=== PATIENT | female | born 1945 | race Caucasian/White ===

== ENCOUNTER 2017-04-12 13:04 | Emergency (ER) | payer MEDICARE ==
[~2017-04-12] VITALS: Ht 154.9 cm; Wt 86.2 kg
[~2017-04-12 13:04] MED LIST: ASPIRIN 81MG TA81 MG PO; ATORVASTATIN CA20 M1 PO; BISOPROLOL 5MG T5 MG PO; CLONAZEPAM0.5 M1 PO; DIFLUCAN 200MG200 MG PO; ESTRADIOL0.5 MG PO; HCTZ/LISINOPRIL1 TA3 PO; HYDROXYZINE HCL25 M1 PO; KLOR-CON M2020 ME1 PO; LINZESS145 MCG PO; MEDROL 4MG. DOSE4 MG PO; NYSTATIN OINTME15 G1 EX; TRAMADOL 50MG T1 PAK PO
[2017-04-12] MEDS ORDERED: CARVEDILOL 25MG25 MG PO (13:31)
--- OUTSIDE RECORDS SUMMARY | 2017-04-12 13:31 | External Medical Summary Rpt | CCD ---
Demographics Preferred Language Spanish Marital Status Unknown Confucianism Affiliation Unknown Race Unknown Ethnic Group Unknown Author Author , WM BURK Address Unknown Phone Immunization No patient found.
--- OUTSIDE RECORDS SUMMARY | 2017-04-12 13:31 | External Medical Summary Rpt | CCD ---
Demographics Preferred Language [place] Marital Status Unknown Christian Affiliation Unknown Race Unknown Ethnic Group Unknown Author Author , WM BURK Address Unknown Phone Immunization No patient found.
--- OUTSIDE RECORDS SUMMARY | 2017-04-12 13:31 | External Medical Summary Rpt | CCD ---
Author Author , WM BURK Address Unknown Phone [email or web address] Purpose Continuity of Care Document - 07-25-2016 through 2016 Problems Code Diagnosis DOS Provider Status E87.6 HYPOKALEMIA 04-12-2017 Z79.899 OTHER LONG 03-25-2017 TERM (CURRENT) DRUG THERAPY Z87.891 PERSONAL 03-25-2017 HISTORY OF NICOTINE DEPENDENCE Z88.1 ALLERGY 03-25-2017 STATUS TO OTHER ANTIBIOTIC AGENTS STATUS Z88.8 ALLERGY 03-25-2017 STATUS TO OTHER DRUGS, MEDICAMENTS AND BIOLOGICAL SUBSTANCES STATUS Z91.041 RADIOGRAPHI 03-25-2017 C DYE ALLERGY STATUS Z95.5 PRESENCE OF 03-25-2017 CORONARY ANGIOPLASTY IMPLANT AND GRAFT R10.32 LEFT LOWER 02-20-2017 QUADRANT PAIN R14.0 ABDOMINAL 02-20-2017 DISTENSION (GASEOUS) R68.83 CHILLS 02-20-2017 (WITHOUT FEVER) Z87.19 PERSONAL 02-20-2017 HISTORY OF OTHER DISEASES OF THE DIGESTIVE SYSTEM Z12.31 ENCOUNTER 02-12-2017 FOR SCREENING MAMMOGRAM FOR MALIGNANT NEOPLASM OF BREAST F41.9 ANXIETY 12-26-2016 DISORDER, UNSPECIFIED I10 ESSENTIAL 12-26-2016 (PRIMARY) HYPERTENSIO N 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 N39.0 URINARY 12-26-2016 TRACT INFECTION, SITE NOT SPECIFIED R00.2 PALPITATION 12-26-2016 S R19.7 DIARRHEA, 12-26-2016 UNSPECIFIED R53.1 WEAKNESS 12-26-2016 T36.8X5A ADVERSE 12-26-2016 EFFECT OF OTHER SYSTEMIC ANTIBIOTICS , INITIAL ENCOUNTER 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 Z98.61 CORONARY 12-26-2016 ANGIOPLASTY STATUS F41.0 PANIC 08-21-2016 DISORDER [EPISODIC PAROXYSMAL ANXIETY] WITHOUT AGORAPHOBIA 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-21-2016 (CURRENT) USE OF ANTITHROMBO TICS/ANTIPL ATELETS Z95.820 PERIPHERAL 08-21-2016 VASCULAR ANGIOPLASTY STATUS WITH IMPLANTS AND GRAFTS D50.9 Iron 07-25-2016 deficiency anemia, unspecified G89.29 Other 07-25-2016 chronic pain I95.9 Hypotension 07-25-2016 , unspecified J06.9 Acute upper 07-25-2016 respiratory infection, unspecified K25.9 Gastric 07-25-2016 ulcer, unspecified as acute or chronic, without hemorrhage or perforation K31.9 Disease of 07-25-2016 stomach and duodenum, unspecified K44.9 Diaphragmat 07-25-2016 ic hernia without obstruction or gangrene K57.31 Diverticulo 07-25-2016 sis of large intestine without perforation or abscess with bleeding K59.09 Other 07-25-2016 constipatio n K64.8 Other 07-25-2016 hemorrhoids K92.2 Gastrointes 07-25-2016 tinal hemorrhage, unspecified M54.9 Dorsalgia, 07-25-2016 unspecified R11.0 Nausea 07-25-2016 Z90.49 Acquired 07-25-2016 absence of other specified parts of digestive tract 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
--- OUTSIDE RECORDS SUMMARY | 2017-04-12 13:31 | External Medical Summary Rpt | CCD ---
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
--- NOTE | 2017-04-12 13:33 | Emergency Room Report ---
History of Present Illness Time Seen by [id number] Presenting Problem in Triage Pt arrived:Walked Presenting Problem:ABDOMINAL CRAMPING WITH NAUSEA. WEAKNESS. 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 Recent fever? N Clinical Suspician of Infection? Y Mental Status: 1 - Regular (Normal Baseline) Sepsis Risk:Low Sepsis Risk Have you (or family members/close friends) recently traveled outside the [place]? N If Yes, where/when: Have you had exposure to infectious disease within the past month? TB? Other? Specify: H and states since Saturday she's been feeling weak and is having bilateral lower quadrant crampy abdominal pain moderate in severity no radiation states she has malaise and fatigue she states she was seen at her family doctor's office on Saturday and they thought she might have a urinary tract infection and she could not urinate at the doctor's office so no UA was done but they placed her on Cipro she states she is not getting worse she still having some burning sensation and some bilateral lower crampy abdominal pain and nausea denies any vomiting and has come in for evaluation. Source patient ALLERGIES Coded Allergies: Iodinated Contrast- Oral and IV Dye (IODINATED CONTRAST MEDIA - IV DYE) ( Intermediate, 11/07/16) povidone-iodine (From BETADINE) (Intermediate, I-RASH 11/07/16) cephalexin (11/07/16) Uncoded Allergies: ANYTHING OTHER THAN PAPER TAPE (I-HIVES 02/01/16) Home Medications Reported Medications TRAMADOL THP (Tramadol 50MG Tablet Take Home Pack (10)) 1 KINJAL PO BID #60 LISINOPRIL/HYDROCHLOROTHIAZIDE (Lisinopril-Hctz 20-12.5 MG Tab) 1 TAB PO DAILY #30 Potassium Chloride (Klor-Con M20) 20 MEQ PO DAILY #30 Linaclotide (Linzess 145MCG) 290 MCG PO DAILY #30 CAPSULE Clonazepam (Clonazepam 0.5MG) 0.5 MG PO PRN PRN ANXIETY #60 ASPIRIN (Aspirin) 81 MG PO DAILY Estradiol 1 MG PO DAILY Carvedilol (Carvedilol 25MG) 25 MG PO BID #60 CIPROFLOXACIN HCL (Ciprofloxacin HCl) 500 MG PO BID #20 History Medical History General CAD? No Angina: Yes ND: No Hypertension? Yes Hyperlipidemia? Yes CHF? No DVT? No PE? No COPD? Yes Asthma? No GERD? No Gastric ulcers? No GI Bleed? No Hernia? No Thyroid Problems? No Hypothyroidism? No CVA? No Seizures? No Diabetes? No Renal Insuffiency? No End Stage Renal Disease? No UTI? Yes Stones? No BPH? No GB Disease: Yes Nephritic Syndrome? No Asplenia? No Hepatitis? Yes Sickle Cell Disease? No Arthritis? No Migraines? No Cataracts? Yes Glaucoma? No MRSA? No HIV? No TB? No Anxiety? No Depression? No Cancer? No More? No Immunization Hx DT/Tetanus Unknown Flu Refused Pneumonia Refuses Surgical Hx Previous Surgery?Y GALLBLADDER 1970s HYSTERECTOMY 1996 SPINAL FUSION 2002 BILAT ROTATOR CUFF CARPEL TUNNEL RIGHT CARDIAC STENTS rectiseal Family History Family Hx Diabetes No CAD Yes Hypertension Yes Hyperlipidemia Yes Cancer No TB No Social History Smoking Hx Smoker: Never Smoker Tobacco: No Alcohol Alcohol: No Review of Systems All Other Systems Reviewed and Negative Comment Review of systems otherwise negative except for that in history of present illness Physical Exam Vital Signs Vital Signs Date Time Temp Pulse Resp B/P Pulse O2 O2 Flow FiO2 Ox Delivery Rate 04/12 1506 98.4 70 18 138/55 96 04/12 1426 18 04/12 1314 98.0 77 16. 140/72 95 General Appearance: Nontoxic Head: Normocephalic, without obvious abnormality, atraumatic. Eyes: conjunctiva/corneas clear ENT: Mucous membranes dry. Neck: No jugular venous distention. Cardiac: regular rate and rhythm Lungs: Clear to auscultation bilaterally Abdomen: bilateral lower quadrant tenderness, Nondistended, positive bowel sounds, no rebound : No CVA tenderness Extremities: no edema Musculoskeletal: No chest wall tenderness Skin: No rashes or lesions to exposed skin. Neurologic: Alert. No gross focal deficits Psychiatric: Normal affect (Preethi MORENO, Gustavo) General Appearance normal appearance Respiratory Status No: respiratory distress. Cardiovascular normal exam Neurologic alert Medical Decision Making LABS/Meds/Orders Pt receiving controlled substance in ED? Yes Comment 315 pm pelvic exam patient's status post complete hysterectomy she states she's had weakness of her vaginal wall and surgical correction of her vaginal wall recently she does some vaginal wall weakness evident, she has some vaginal irritation and inflammation likely caused by yeast given that she is already on Flagyl, gc wet preps were taken [facility], [place] [id number] Results/Orders Laboratory Tests 04/12/17 1500: C.trachomatis DNA (VIVI) Pending, N.gonorrhoeae RNA Pending, Urine Color YELLOW, Urine Appearance CLEAR, Urine pH 5.5, Ur Specific [place] >= 1.030, Urine Protein NEGATIVE, Urine Ketones NEGATIVE, Urine Blood 1+ H, Urine Nitrate NEGATIVE, Urine Bilirubin NEGATIVE, Urine Urobilinogen 0.2, Ur Leukocyte Esterase NEGATIVE, Urine RBC OCC, Urine WBC 3-5, Ur Squamous Epith Cells 3-5, Urine Bacteria 3+, Urine Mucus 2+, Urine Glucose NEGATIVE 04/12/17 1405: Sodium 143, Potassium 3.2 L, Chloride 105, Carbon Dioxide 29, BUN 11, Creatinine 0.8, Estimated Creat Clear 88, Estimated GFR (MDRD) 71, Glucose 131 H, Calcium 9.3, Total Bilirubin 0.4, AST 16, ALT 20, Alkaline Phosphatase 86, Total Protein 7.7, Albumin 3.3 L, Globulin 4.4 H, Albumin/Globulin Ratio 0.8 L, Lipase 134, WBC 9.4, RBC 4.31, Hgb 13.9, Hct 41.0, MCV 95.0, RDW 13.1, Plt Count 244, MPV 8.6, Gran % 78.5, Gran # 7.4, Lymphocytes % 13.8, Monocytes % 4.5 , Eosinophils % 2.7, Basophils % 0.5, Lymphocytes # 1.3, Monocytes # 0.4, Eosinophils # 0.3, Basophils # 0.1, PUBS MCHC 33.9, MCH 32.2 H Current Medication Orders Sig/Alyssa Start time Last Medication Dose Route Stop Time Status Admin Fluconazole 200 MG ONCE ONE 04/12 161 DC PO 04/12 161 Metronidazole 500 MG ONCE ONE 04/12 1615 DC PO 04/12 1616 Potassium Chloride 40 MEQ ONCE ONE 04/12 1600 DC PO 04/12 1601 Promethazine HCl 0 .STK-MED ONE 04/12 141 DC .ROUTE Sodium Chloride 1,000 ML .STK-MED ONE 04/12 1412 DC IV Morphine Sulfate 0 .STK-MED ONE 11/24 1411 DC .ROUTE Morphine Sulfate 4 MG ONCE ONE 04/12 1345 DC 04/12 IV 04/12 1346 1426 Promethazine HCl 6.25 MG ONCE ONE 04/12 1345 DC 04/12 IV 04/12 1346 1428 Sodium Chloride 1,000 ML .Q1H1M 04/12 1345 DC 04/12 IV 04/12 1445 1400 Sodium Chloride 10 ML PRN PRN 04/12 1345 AC IV 04/13 1340 Sodium Chloride 25 ML ONCE ONE 04/12 1345 DC IV 04/12 1359 Orders Procedure Date/time Status DIET-NOTHING BY MOUTH 04/12 D Active URINARY CATHETER INSERT 04/12 1518 Active CULTURE, URINE 04/12 1500 Active WET PREP 04/12 1407 Complete CHLAMYDIA/GC 04/[address] ABD/PELVIS REQ 04/12 1341 Active LIPASE 04/12 1341 Complete CBC WITH AUTO DIFF 04/12 1341 Complete CHEM 12 PROFILE 04/12 1341 Complete URINALYSIS/COMPLETE 04/12 1316 Complete Departure Departure Time of Disposition 1559 Disposition DC Home or Self Care(routine) Clinical Impression Primary Impression: Diverticulitis Secondary Impressions: Vaginitis Qualifiers: Chronicity: acute Qualified Code: N76.0 - Acute vaginitis Condition STABLE Referrals LADARIUS FRANKS (Family) Patient Instructions DI for Atrophic Vaginitis, DI for Diverticulitis Additional Instructions follow up with your doctor for recheck clear liquid diet for 48 hours return if worse to ER continue your cipro as already prescribed. follow up with your [facility] doctor for repeat pelvic exam to see if any further can be done with your pelvic wall. Prescriptions Current Visit Scripts Metronidazole (Flagyl) 500 MG PO TID #30 TAB HYDROCODONE/ACETAMINOPHEN (LORTAB 5-325 (generic)) 1 TAB PO Q6HP PRN PAIN #10 TAB Ondansetron (Zofran 4MG Odt) 4 MG PO Q6HP PRN NAUSEA AND VOMITING #10 ODT ED Critical Care Critical Care No at 1621
[2017-04-12] MEDS ORDERED: CIPROFLOXACIN500 M2 PO (13:36)
[2017-04-12 14:15] LABS: LYMPH # 1.3 K/mm3 (0.7-4.5); LYMPH % 13.8 % (10-50.0)
[2017-04-12 14:20] LABS: HEMOGLOBIN 13.9 g/dL (12.2-16.2)
--- NOTE | 2017-04-12 15:02 | RADIOLOGY REPORT PS360 ---
CT ABD PELVIS W/O CONTRAST COMPARISON: None HISTORY: Bilateral lower quadrant abdominal pain TECHNIQUE: Multiple axial scans obtained from hemidiaphragms to the pelvic floor and were performed without IV or oral contrast. Sagittal coronal reformats were evaluated as well. FINDINGS: The lower lung alvarenga are clear. There is mild to moderate generalized cardiomegaly. The liver spleen stomach and pancreas appear grossly normal. There is been a previous cholecystectomy. However there is mild dilatation of the common bile duct, likely within normal limits postcholecystectomy. The adrenal glands are normal. The kidneys are normal in size. Is a tiny nontracking calculus lower pole left kidney and a small parapelvic cyst lower pole left kidney there is no obstructive uropathy of either kidney. Small bowel appears normal. What appears to be the appendix is normal in caliber and there are no pericecal inflammatory changes. There is a loose liquid stool in the ascending and proximal transverse colon with large amount of formed stool in the descending and sigmoid colon. There are scattered diverticuli of the lower descending and sigmoid colon with very minimal pericolonic haziness noted. There are metallic brackets and pedicle screws fusing L4 and L5. There are hypertrophic facet changes at L5 S1 level. IMPRESSION: 1. Diffuse diverticulosis of the lower descending and sigmoid colon with possible very early diffuse area of diverticulitis involving the mid sigmoid colon. 2. Apparent loose or liquid stool in right colon suggesting some degree of enteritis. .
[2017-04-12 15:12] LABS: URINE BILIRUBIN - DIPSTICK NEGATIVE (NEG); URINE BLOOD 1+ (NEG)
[2017-04-12] MEDS ORDERED: FLAGYL500 M1 PO (16:08)
[2017-04-12] MEDS ORDERED: ZOFRAN ODT4 MG PO (16:08)
[2017-04-12] MEDS ORDERED: HYDROCODONE/APA1 TA8 PO (16:08)
[2017-04-12 16:40] VITALS: BP 140/63
[2017-04-15 16:40] LABS: Neisseria gonorrhoeae, NAA Negative (Negative)
== END 2017-04-12 16:45 | disposition home or self-care (01) ==
LOC: ER 13:04
PROVIDERS: Emergency Medicine
DX: K57.92 Diverticulitis of intestine, part unspecified, without perforation or abscess without bleeding (principal); N76.0 Acute vaginitis; I10 Essential (primary) hypertension; E78.5 Hyperlipidemia, unspecified; J44.9 Chronic obstructive pulmonary disease, unspecified